=== PATIENT | male | born 1975 | race Caucasian/White ===

== ENCOUNTER 2022-07-02 13:48 | Day surgery (SDC) | payer BC ==
[2022-07-02] MEDS ORDERED: FENTANYL 50 MCG/ML 1 ML VIAL ONE (18:26)
[2022-07-02] MEDS ORDERED: Midazolam HCl 2 mg/2 ml Vial ONE ×2 (18:26→18:43)
[2022-07-02] MEDS ORDERED: Bupivacaine PF 0.5% 30 ML VIAL ONE (18:29)
[2022-07-02] MEDS ORDERED: Neomycin-Polymyxin 1 ML AMP ONE (18:30)
[2022-07-02] MEDS ORDERED: Bacitracin Zinc Ointment 30 gm TUBE ONE (18:30)
[2022-07-02] MEDS ORDERED: Famotidine/PF 20 mg/2ml Vial ONE (18:36)
[2022-07-02] MEDS ORDERED: CEFAZOLIN 2 GM VIAL ONE (18:37)
[2022-07-02] MEDS ORDERED: Sodium Chloride 0.9% 100 ML ONE (18:37)
[2022-07-02] MEDS ORDERED: fentaNYL PF 100 MCG/2 ML SYRINGE ONE (18:43)
[2022-07-02] MEDS ORDERED: Ketorolac Tromethamine 30 MG/ML VIAL ONE ×2 (18:45→20:25)
[2022-07-02] MEDS ORDERED: PROPOFOL 200 MG/20 ML VIAL ONE (18:45)
[2022-07-02] MEDS ORDERED: Dexamethasone 20 MG/5 ML VIAL ONE (18:45)
[2022-07-02] MEDS ORDERED: Ondansetron PF 4 MG/2 ML Vial ONE (18:45)
== END 2022-07-02 21:15 | disposition home or self-care (01) ==
LOC: SDC 13:48
PROVIDERS: ATTEND Orthopaedic Surgery Hand Surgery
PROC: 0LQ80ZZ Repair Left Hand Tendon, Open Approach (ICD-10-PCS; principal; 2022-07-02)
PROC: 0RBX0ZZ Excision of Left Finger Phalangeal Joint, Open Approach (ICD-10-PCS; principal; 2022-07-02)
DX: S66.222A Laceration of extensor muscle, fascia and tendon of left thumb at wrist and hand level, initial encounter (principal); S61.012A Laceration without foreign body of left thumb without damage to nail, initial encounter; Z79.899 Other long term (current) drug therapy; W26.0XXA Contact with knife, initial encounter
CPT/HCPCS: C1894; J1100; J1885; J2250; J2405; J2704; J3010; J3490; S0020; S0028